=== PATIENT | female | born 1995 | race African-American/Black ===

== ENCOUNTER 2016-04-10 20:46 | Emergency (ER) | payer OTHER, MEDICAID ==
[2016-04-10 20:58] VITALS: TEMP 100.1; BMI 28.6
[2016-04-10] MEDS ORDERED: NS 1,000 ML IV ONE (21:14)
[2016-04-10] MEDS ORDERED: IBUPROFEN 800 MG TAB PO ONE ×2 (21:14→21:53)
[2016-04-10] MEDS ORDERED: CEFTRIAXONE 1 GM in D5W 100 ML IV ONE (21:14)
[2016-04-10 21:17] LABS: LEUKOCYTES/URINE 1+ (NEGATIVE); NITRITE/URINE POS (NEGATIVE); URINE OCCULT BLOOD NEG (NEG/TRACE); WBC/URINE 30-40 (0-5)
[2016-04-10 21:24] LABS: AUTOMATED BASOPHIL 0.4 % (0-2); AUTOMATED EOSINOPHIL 0.2 % (0-5); AUTOMATED LYMPH 13.4 % (17-44); AUTOMATED MONOCYTE 7.8 % (3-10); AUTOMATED NEUTROPHIL 78.2 % (45-76); MPV 8.8 fL (7.4-10.4)
[2016-04-10 21:32] LABS: BLOOD UREA NITROGEN 8 MG/DL (7-17); CALCIUM 8.9 MG/DL (8.4-10.2); CALCULATED OSMOLALITY 262 MOs/Kg (270-290); CHLORIDE 103 mEq/L (98-107); GLUCOSE 105 MG/DL (70-99); SODIUM LEVEL 137 mEq/L (137-146); TOTAL PROTEIN 7.9 G/DL (6.3-8.2)
--- NOTE | 2016-04-10 21:34 | EDPRACDOC ---
- General Information Chief Complaint: Female Urogenital Problems Stated Complaint: BLOOD WITH URINATION Time Seen by Provider: 04/10/16 21:08 Information Source: Patient Mode Of Arrival: Car Home Medications: Home Medications No Home Medications 0 NA DIR 06/14/12 Ondansetron [Zofran Odt] 4 mg PO Q6H PRN #20 tab.rapdis 04/10/16 Sulfamethoxazole/Trimethoprim [Bactrim Ds Tablet] 1 tab PO BID #14 tab 04/10/16 Allergies/Adverse Reactions: Allergies Allergy/AdvReac Type Severity Reaction Status Date / Time No Known Allergies Allergy Verified 07/15/12 19:21 - History of Present Illness HPI: PT PRESENTS WITH DYSURIA, AND FEVER. STATES SHE HAS HAD NAUSEA AND VOMITING TODAY. 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 Urinary Pain Location: Reports: Suprapubic Symptom Onset: Reports: Gradual Pain Severity: Mild Pain Quality: Reports: Aching, Burning History of: Reports: None : No Oral Intake: Decreased Urinary Output: Normal Associated Signs and Symptoms: Reports: Fever ED Past Medical History - History Reviewed Yes Nurses notes reviewed and agree except as marked - Patient Medical History Psychological History: Denies: Depression - Social Medical History Smoking Status: Never smoker EDM Review of Systems - Review of Systems ROS Negative Except as Marked: Yes All systems reviewed and were negative except as marked - Physical Exam Constitutional: Alert Oriented to: Time, Person, Place Last recorded Vital Signs: Last Vital Signs Temp 100.1 F 04/10/16 20:54 Pulse 115 04/10/16 20:54 Resp 20 04/10/16 20:54 BP 136/79 04/10/16 20:54 Pulse Ox 96 04/10/16 20:54 Oxygen Pulse Oxygen Saturation 96 O2 Device Room Air Oxygen Flow Rate Fraction of Inspired Oxygen ( FIO2) - HEENT Head: Normal ( normocephalic) Eye Exam: Normal (PERRL, EOMI, Sclera white) Oropharynx: Normal (Pharynx:Moist without exudate,Gums-no swelling) Nose: No Symptoms Reported (septum midline) Neck: Normal (FROM, trachea at midline) - Respiratory/Cardiovascular Respiratory: Normal - CTA (BBS clear to auscultation without adventitious sounds ) Cardiovascular: Normal (RRR without murmur, gallop or rub) - GI Auscultation: Normal (NABS) Palpation: Normal (Soft,No rebound or guarding, non distended) Tenderness: Mild, Suprapubic Patel's Sign: Negative Rectal Exam: Deferred - Musculoskeletal Back: Normal (Non-Tender) Extremities: Normal (Normal tone, Pulses 2+ No cyanosis or edema, FROM) - Integumentary Skin: Normal, Warm, Dry Lymphatics: Normal (no adenopathy) - Neurologic Memory Impaired: Normal Motor Function: Normal (Normal tone, Pulses 2+ No cyanosis or edema, FROM) Cranial Nerve: Normal (CN II-X11 intact sensation, strength 5/5) Cerebellar: Normal Mood Description: Normal Perception: Normal - Differential Diagnosis UTI - Results 04/10/16 21:12 04/10/16 21:12 Urine Color Dark yellow 04/10/16 21:00 Urine Clarity Cldy 04/10/16 21:00 Urine pH 6.0 (5.0-8.0) 04/10/16 21:00 Ur Specific [place] 1.015 (1.003-1.035) 04/10/16 21:00 Urine Protein 1+ (NEG/TRACE) H 04/10/16 21:00 Urine Glucose (UA) Neg (NEGATIVE) 04/10/16 21:00 Urine Ketones Neg (NEGATIVE) 04/10/16 21:00 Urine Occult Blood Neg (NEG/TRACE) 04/10/16 21:00 Urine Nitrite Pos (NEGATIVE) H 04/10/16 21:00 Urine Bilirubin Neg (NEGATIVE) 04/10/16 21:00 Urine Urobilinogen 4 MG/DL (0-1) H 04/10/16 21:00 Ur Leukocyte Esterase 1+ (NEGATIVE) H 04/10/16 21:00 Urine RBC 2-5 (0-5) 04/10/16 21:00 Urine WBC 30-40 (0-5) H 04/10/16 21:00 Ur Epithelial Cells 3+ 04/10/16 21:00 Urine Bacteria 4+ (NEG/FEW) H 04/10/16 21:00 Urine Mucus Large (NEG/OCC) 04/10/16 21:00 Urine Test Neg (NEGATIVE) 04/10/16 21:00 Lab Results 04/10/16 04/10/16 21:00 21:00 Urine Color Dark yellow Urine Clarity Cldy Urine pH 6.0 Ur Specific [place] 1.015 Urine Protein 1+ H Urine Glucose (UA) Neg Urine Ketones Neg Urine Occult Blood Neg Urine Nitrite Pos H Urine Bilirubin Neg Urine Urobilinogen 4 H Ur Leukocyte Esterase 1+ H Urine RBC 2-5 Urine WBC 30-40 H Ur Epithelial Cells 3+ Urine Bacteria 4+ H Urine Mucus Large Urine Test Neg Decision Time to Discharge: 21:50 - Departure Disposition: Home Condition: Stable Final Diagnosis: UTI (urinary tract infection) Qualifiers: Urinary tract infection type: acute cystitis Hematuria presence: with hematuria Qualified Code(s): N30.01 - Acute cystitis with hematuria Instructions: Urinary Tract Infection in Women (ED), Dysuria Education/Counseling Given To: Patient Education/Counseling Given Regarding: Diagnosis, Treatment, Prognosis, Follow Up Referrals: Theron Ashby II, MD [Staff Physician] - One Week Prescriptions: Ondansetron [Zofran Odt] 4 mg PO Q6H PRN #20 tab.rapdis PRN Reason: Nausea/Vomiting Sulfamethoxazole/Trimethoprim [Bactrim Ds Tablet] 1 tab PO BID #14 tab Forms: Excuse Note Additional Instructions: INCREASE FLUID INTAKE. FOLLOW UP WITH PRIMARY CARE PROVIDER NEXT WEEK. TAKE ALL ANTIBIOTICS PRESCRIBED. RETURN TO THE ED FOR WORSENING SYMPTOMS OR CONCERNS.
[2016-04-10] MEDS ORDERED: ONDANSETRON HCL 4 MG/2 ML VIAL IV ONE (21:53)
[2016-04-10 23:03] VITALS: BP 116/73; PULSE 92
== END 2016-04-10 23:00 | disposition home or self-care (01) ==
LOC: ED 20:46
DX: N30.01 Acute cystitis with hematuria (principal)
CPT/HCPCS: 36415; 80053; 81001; 81025; 83690; 85025; 96365; 96375; 99284; J0696; J2405; J3490; J7060